=== PATIENT | male | born 1990 | race Two or more races ===

== ENCOUNTER 2020-09-21 12:34 | Emergency (ER) | payer OTHER ==
[~2020-09-21] VITALS: Ht 177.8 cm; Wt 77.1 kg
--- NOTE | 2020-09-21 12:50 | NUR ---
THE PATIENT BIBSELF FOR C/O RUQ ABDOMINAL PAIN, NOTED BLOOD IN STOOL X 2 WEEKS. THE PATIENT RATES RUQ ABDOMINAL PAIN 8/10. PROVIDED WITH WARM BLANKET FOR COMFORT. WILL CONTINUE TO MONITOR.
--- NOTE | 2020-09-21 13:10 | NUR ---
STARTED RAC G 18 LINE, BLOOD COLLECTED AND SENT IT TO THE LAB.
[2020-09-21 13:18] LABS: BASOPHILS # (AUTO) 0.1 /CMM (0.0-0.2); BASOPHILS % (AUTO) 1.3 % (0.0-2.0); EOSINOPHILS % (AUTO) 3.3 % (0.0-6.0); HEMATOCRIT 43 % (39-51); HEMOGLOBIN 14.7 g/dL (13.5-17.5); LYMPHOCYTES # (AUTO) 2.2 /CMM (0.8-4.8); LYMPHOCYTES % (AUTO) 47.4 % (20.0-44.0); MEAN CORPUSCULAR HGB CONC 34 g/dl (31.0-36.0); MEAN CORPUSCULAR VOLUME 92 fL (80-96); MONOCYTES # (AUTO) 0.3 /CMM (0.1-1.30); MONOCYTES % (AUTO) 7.5 % (2.0-12.0); NEUTROPHILS # (AUTO) 1.8 /CMM (1.8-8.9); NEUTROPHILS % (AUTO) 40.5 % (43.0-81.0); PLATELET COUNT (AUTO) 231 /CMM (150-450); RED BLOOD CELL COUNT(AUTO) 4.71 MIL/uL (4.5-6.0); WHITE BLOOD COUNT (AUTO) 4.5 K/uL (4.3-11.0)
[2020-09-21 13:27] LABS: CALCIUM, SERUM 8.3 mg/dL (8.5-10.1); CREATININE 1.2 mg/dL (0.6-1.3); POTASSIUM 4.1 mmol/L (3.5-5.1)
--- NOTE | 2020-09-21 13:30 | NUR ---
PATIENT BEEING SEEN BY DR OLSON.
[2020-09-21 13:34] LABS: ALBUMIN 3.9 g/dL (3.4-5.0); BILIRUBIN,DIRECT 0.1 mg/dL (0.0-0.2); BILIRUBIN,TOTAL 0.3 mg/dL (0.2-1.0); TOTAL PROTEIN, SERUM 7.4 g/dL (6.4-8.2)
[2020-09-21 13:46] LABS: BILIRUBIN,URINE Negative (NEGATIVE); COLOR,URINE YELLOW (YELLOW); LEUKOCYTE ESTERASE ,URINE Negative (NEGATIVE); NITRITE, URINE Negative (NEGATIVE); PH,URINE 7.5 (5.0-8.0); PROTEIN,URINE Negative (NEGATIVE); UGLUCOSE Negative (NEGATIVE); UROBILINOGEN,URINE 0.2 EU/dL (0.2)
[2020-09-21] MEDS ORDERED: CIPR500T5 PO (15:18)
--- NOTE | 2020-09-21 16:18 | NUR ---
Patient alert and oriented x4. Patient discharged to home in stable condition. Written and verbal after care instructions given. Patient verbalizes understanding of instruction. The patient left ER in stable condition.
[2020-09-21 16:19] VITALS: BP 124/68
== END 2020-09-21 16:00 | disposition home or self-care (01) ==
LOC: ER 12:43
DX: R10.11 Right upper quadrant pain (principal); K92.1 Melena
CPT/HCPCS: 36415; 76705-TC; 80048-TC; 80076-TC; 83690-TC; 85025-TC